=== PATIENT | female | born 1965 ===

== ENCOUNTER 2017-09-08 07:30 | Inpatient (IN) | payer OTHER ==
[2017-09-09] MEDS ORDERED: Vancomycin 1 gm/D5W 200 ml 1 GM/200 ML BAG IVPB ONE (10:26)
[2017-09-09] MEDS ORDERED: Lidocaine/Epinephrine 1% 1:100000 10 ML IJ ONE (10:26)
[2017-09-09] MEDS ORDERED: Thrombin Topical 20,000 Intl Units Spray Kit TOP ONE (10:27)
[2017-09-09] MEDS ORDERED: Bupivacaine HCl 0.5% PF (30 ml) Inj ONE (10:27)
[2017-09-09] MEDS ORDERED: Sodium Chloride 0.9% 20 ML IV ONE ×2 (10:28→13:27)
[2017-09-09] MEDS ORDERED: Absorbable Gelatin Sponge Size 100 ONE ×2 (10:56→14:58)
[2017-09-09] MEDS ORDERED: Midazolam 2 MG/2 ML VIAL ONE (11:41)
[2017-09-09] MEDS ORDERED: Propofol 10 mg/ml 1,000 MG/100 ML VIAL ONE (11:42)
[2017-09-09] MEDS ORDERED: Propofol 10 mg/ml Inj (20 ML) ONE ×2 (12:22→12:32)
[2017-09-09] MEDS ORDERED: Remifentanil 1 mg/3 ml Vial IV ONE ×2 (12:33→13:08)
[2017-09-09] MEDS ORDERED: Bupivacaine Liposomal Inj 20 ml INFIL ONE (13:16)
[2017-09-09] MEDS ORDERED: Phenylephrine 10 mg/ml Inj ONE (14:27)
[2017-09-09] MEDS ORDERED: Absorbable Gelatin Sponge Size 12-7 ONE (14:58)
[2017-09-09] MEDS ORDERED: HYDROmorphone 0.5 mg/0.5 ml ISec ONE (16:04)
[2017-09-09] MEDS: HYDROmorphone 0.5 mg/0.5 ml ISec IVP PRN ×2 (16:05→17:20)
[2017-09-09] MEDS: Potassium Ch 20mEq in D5-1/2NS 1,000 ML IV SCH (18:40)
[2017-09-10] MEDS: Potassium Ch 20mEq in D5-1/2NS 1,000 ML IV SCH (04:20)
--- NOTE | 2017-09-10 04:32 | CP.PCM.PN ---
Subjective - Date & Time of Evaluation Date of Evaluation: 09/10/17 Time of Evaluation: 04:29 - Subjective Subjective: paged at 4:10AM for chest pain This patient is s/p spinal fusionc she has a PMhx of HLD FamHx of HTN, breast cancer, and grandfather of MS/CAD in 80's patient had echo before surgery, which was reportedly normal as per patient; no hospital records at this time to review patient also states that she has had a cardiac cath 8 years ago which was reportedly normal as well per patient; no records to review patient states she has had chest pain, for 2 hours, that comes and goes when she moves, worse with deep inspiration and worse when i examine her and touch her rib bones she states she has been using her incentive spirometer as much as possible patient is not currently on anticoagulation for DVT prophylaxis VSS on exam: BP 120/80, HR 75, O2 99% on RA, laying comfortably in bed, non diaphoretic will order EKG patient does not perc out, WELLS score of 1.3% clinically seems more like costochondritis with reproducible pain, worse with inspiration, painful on palpation, no tachycardia, no SOB EKG NSR with no ST T wave changes, good R wave, at 80BPM will give one dose of 800mg Ibuprofen Objective - Vital Signs/Intake and Output Vital Signs (last 24 hours): Temp Pulse Resp BP Pulse Ox 98.1 F 81 20 124/77 98 09/09/17 23:15 09/09/17 23:15 09/09/17 23:15 09/09/17 23:15 09/09/17 23:15 Intake and Output: 09/09/17 09/10/17 18:59 06:59 Intake Total 1775 Output Total 400 100 Balance 1375 -100 - Medications Medications: Current Medications Acetaminophen (Tylenol 325mg Tab) 650 mg PO Q6 PRN PRN Reason: Fever >100.4 F Hydromorphone/Sodium Chloride (Dilaudid Radioisotope Technician) 6 mg IV Q4H PRN; Protocol PRN Reason: Pain, severe (8-10) Last Admin: 09/09/17 18:40 Dose: 6 mg Potassium Chloride/Dextrose/Sod Cl (Potassium Chl 20 Meq In D5-1/2ns) 1,000 mls @ 100 mls/hr IV .Q10H [facility] Last Admin: 09/09/17 18:40 Dose: 100 mls/hr Magnesium Hydroxide (Milk Of Magnesia) 30 ml PO ONCE ONE Stop: 09/10/17 10:01
--- NOTE | 2017-09-10 07:48 | OP ---
PROCEDURE DATE: 09/09/2017 PREOPERATIVE DIAGNOSES: Lumbar disk disruption, spondylolisthesis of L4-5. POSTOPERATIVE DIAGNOSES: Lumbar disk disruption, spondylolisthesis of L4-5. PROCEDURE: L4-5 decompression diskectomy, interbody and posterolateral fusion with iliac autograft and segmental pedicle screw fixation. SURGEON: Duglas Padron MD CO-SURGEON: Niranjan Gilliam MD TYPE OF ANESTHESIA: General endotracheal. ESTIMATED BLOOD LOSS: 300 mL, 125 mL returned via Cell [employer]. COMPLICATIONS: None. JUSTIFICATION: The patient is status post on-the-job accident who is suffering severe low back pain and left-sided radicular pain. She underwent some type of percutaneous diskectomy procedure, which I believe was a transforaminal percutaneous diskectomy which failed. She again suffered significant pain down in the left leg as well as intraarticular back pain. Postoperative MRI documented severe collapse of the disk space. There was now spondylolisthesis. There was evidence of soft tissue in the left lateral foramen. The patient was offered the possibility of operative intervention by reexploration, decompression, attempted interbody fusion, segmental fixation, and posterolateral fusion. The nature of this procedure, the rationale behind it, potential risks and complications were discussed with her at length. All of her questions were answered. She fully understood all the above and elected to proceed. DESCRIPTION OF PROCEDURE: The patient was taken to the operating room. She was hooked up to neurophysiological monitoring. She was carefully intubated, anesthetized. She was placed on the OR table on a Benji frame in a prone position. Care was taken to protect the face, eyes, endotracheal tube, and all bony prominences. The entire low back was then scrubbed with acetone and scrub painted and draped in the usual sterile manner. Incision localized with lateral fluoroscopy traced out overlying the spinous processes of L3 to L5. After prepping and draping, the incision was made with a #10 blade knife and carried down to the level of the fascia. Bovie cautery was used to incise the fascia, strip the paraspinal muscles off the spinous processes and laminae of L4 to L5. Confirmatory x-ray was taken. The exposure was then widened out laterally bilaterally again with Bovie and Benson elevators to expose the transverse processes at both levels on both sides. The entire L4-5 facet was exposed as well. Bleeding controlled throughout with the Bovie cautery and thrombinated Gelfoam. At this point, we performed bone marrow harvestation. A 5-gauge trocar was inserted directly into the right superior posterior iliac crest. Approximately 90 mL of marrow was aspirated. This was then spun down to obtain the bone marrow mesenchymal cells which were then used to impregnate some collagen, hydroxyapatite sponges along with some additional allograft. This was later used for the bone fusion. The decompression was begun with Leksell rongeur removing the inferior spine of L4, the top of L5, thinning down the L4 lamina. All this bone was saved and later used in bone grafting. Then various-sized Kerrison rongeurs were used to complete a wide laminotomy removing the inferior two-thirds of the L4 lamina. Generous medial facetectomies were performed laterally bilaterally. At this point, we used a high-speed drill as well as various-sized Kerrisons. On the right side which was , there was no problem and we widely exposed the lateral disk. Foraminotomies performed on the exiting four nerve roots on the right side and was also identified the canal traced below the pedicle to ensure complete decompression. On the left side where there was scarring distally anterior to the top of the L5 root as well as primarily in the foramen into the L4 root, we were able to dissect the outer scar somewhat. We performed a medial facetectomy as described above and a generous foraminotomy of the scarred exiting L4 nerve root. We began the diskectomy on the right side, gently retracting the root medially. The disk was incised and noted to be markedly collapsed. Just to see if there was any chance of placing an interbody graft, we put the smaller sized 8 mm dilator, i.e., without any plates into the disk space and under the live fluoroscopy. ____ looks like it was digging somewhat into the endplate with no sharp edge and thus we abandoned any thought of performing an interbody fusion. We completed the diskectomy on that side and then performed the same diskectomy on the left side, which was even more collapsed. Following the diskectomy, we decorticated the endplates a little bit with curettes and then placed bone grafting material directly into the disk space. This included marrow-impregnated mini sponges, some additional allograft, bone matrix protein, and chopped up products of decompression. This space has also been filled on the right side. At this point, we decorticated the lateral gutter. Using a high-speed drill, we decorticated both transverse processes of lateral pars and facet on both sides. We then began the pedicular instrumentation. We used technique of identifying the pedicular entrance both visually and fluoroscopically, drilled the cortical surface and passed the gear shift down the barrel of the pedicle into the vertebrae. We then used a ball-tip probe to sound the passage way and placed the appropriate-sized screw. Using this technique, we placed 45 mm length screws bilaterally at L4 and 45 and 40 mm respectively at L5, both AP and lateral fluoroscopy confirmed excellent position of all 4 of the screws. No screw elicited any EMG activity than less than 20 milliamps. We then placed the appropriate-sized titanium rods into the two screw head receptacles on each side. Placed locking nuts and torque-wrenched tight reconnections. We did attempt to place a cross connector, but because of the divergent nature of the ike, this was impossible. We then packed all remaining bone grafting material as described above into the lateral gutters to achieve the posterolateral fusion. At this point, we ensured there was no foreign matter, particularly bone grafting material in the peridural space. This was irrigated with antibiotic solution, a layer of thrombinated powdered Gelfoam, followed by a layer of solid Gelfoam was left in the posterior epidural space. The retractors were withdrawn. The muscle reapproximated using interrupted 0 Vicryl, the fascia closed using tight interrupted 0 Vicryl stitch. The subcu closed in 2 separate layers of 3-0 Vicryl and the skin closed with running 3-0 Monocryl stitch, benzoin, and Steri-Strips. The dressing was applied. The patient was turned back on to a supine position on stretcher, extubated without difficulty, noted to be moving all groups of the lower extremities with excellent strength. Somatosensory evoked potentials and EMG remained quiescent over the procedure. There were no complications. Counts were correct. Duglas Padron MD [facility] # [id number]
--- NOTE | 2017-09-10 07:51 | RAD ---
PROCEDURE: Intraoperative Fluoroscopy. HISTORY: LUMBAR FUSION L4/L5 FINDINGS: Fluoroscopic assistance was provided for L4-5 lumbar fusion. Please refer to the operative report from JAMES Rg.
[2017-09-10] MEDS ORDERED: Magnesium Hydroxide Susp 30 ml UD PO ONE (10:00)
--- NOTE | 2017-09-10 14:24 | CP.PCM.PN ---
Subjective - Date & Time of Evaluation Date of Evaluation: 09/10/17 Time of Evaluation: 14:19 - Subjective Subjective: SPINE - POD #1 Pt resting in bed. States she was OOB to chair earlier for an hour. Her L leg feels better than pre-op. The WINDOWS DEPLOYMENT TECHNICIAN helps her back pain. Voiding on own after roach removal. VSS. Afebrile. Moving lower extremities actively. Neuro grossly intact. Plan: Continue to mobilize as tolerated. Pt [facility] in [facility] but will be alone during day. Await rehab eval for possible acute rehab placement post- discharge. Objective - Vital Signs/Intake and Output Vital Signs (last 24 hours): Temp Pulse Resp BP Pulse Ox 98.4 F 72 20 119/71 98 09/10/17 07:20 09/10/17 07:20 09/10/17 07:20 09/10/17 07:20 09/10/17 07:20 Intake and Output: 09/10/17 09/10/17 06:59 18:59 Intake Total 900 Output Total 700 Balance 200 - Medications Medications: Current Medications Acetaminophen (Tylenol 325mg Tab) 650 mg PO Q6 PRN PRN Reason: Fever >100.4 F Hydromorphone/Sodium Chloride (Dilaudid Field Care Manager) 6 mg IV Q4H PRN; Protocol PRN Reason: Pain, severe (8-10) Last Admin: 09/09/17 18:40 Dose: 6 mg Potassium Chloride/Dextrose/Sod Cl (Potassium Chl 20 Meq In D5-1/2ns) 1,000 mls @ 100 mls/hr IV .Q10H [facility] Last Admin: 09/10/17 04:20 Dose: 100 mls/hr
[2017-09-11] MEDS: Aluminum Hydroxide/Magnesium Hydroxide Susp (30 mL) PO PRN ×2 (01:51→21:23)
[2017-09-11] MEDS: Potassium Ch 20mEq in D5-1/2NS 1,000 ML IV SCH ×2 (01:53→12:55)
[2017-09-11] MEDS: oxyCODONE 20 mg ER Tab (oxyCONTIN) PO SCH ×2 (10:03→21:19)
--- NOTE | 2017-09-11 10:32 | CP.PCM.PN ---
Subjective - Date & Time of Evaluation Date of Evaluation: 09/11/17 Time of Evaluation: 10:30 - Subjective Subjective: POD 2 doing well amb to BR L leg better expected inc. pain Dsg c and d P PT dc BRAKESHOE REPAIRER ss to arrange dc plan Objective - Vital Signs/Intake and Output Vital Signs (last 24 hours): Temp Pulse Resp BP Pulse Ox 99.0 F 90 20 111/69 98 09/11/17 07:35 09/11/17 07:35 09/11/17 07:35 09/11/17 07:35 09/11/17 07:35 Intake and Output: 09/11/17 09/11/17 06:59 18:59 Intake Total 1920 Output Total 1400 Balance 520 - Medications Medications: Current Medications Acetaminophen (Tylenol 325mg Tab) 650 mg PO Q6 PRN PRN Reason: Fever >100.4 F Al Hydrox/Mg Hydrox/Simethicone (Maalox 30 Ml) 30 ml PO Q8 PRN PRN Reason: Indigestion / Heartburn Last Admin: 09/11/17 01:51 Dose: 30 ml Famotidine (Pepcid) 20 mg PO BID [facility] Last Admin: 09/10/17 18:38 Dose: 20 mg Hydromorphone/Sodium Chloride (Dilaudid Contact And Service Clerks Supervisor) 6 mg IV Q4H PRN; Protocol PRN Reason: Pain, severe (8-10) Last Admin: 09/09/17 18:40 Dose: 6 mg Potassium Chloride/Dextrose/Sod Cl (Potassium Chl 20 Meq In D5-1/2ns) 1,000 mls @ 100 mls/hr IV .Q10H [facility] Last Admin: 09/11/17 01:53 Dose: 100 mls/hr Oxycodone HCl (Oxycontin Extended Release Tab) 20 mg PO Q12 [facility] Last Admin: 09/11/17 10:03 Dose: 20 mg Oxycodone/Acetaminophen (Percocet 5/325 Mg Tab) 1 tab PO Q4H PRN PRN Reason: Pain, Mild (1-3) Stop: 09/14/17 10:01
--- NOTE | 2017-09-11 22:09 | CARD ---
APPROVED REPORT EKG Measurement Heart [id number] <Conclusion> Normal sinus rhythm Normal ECG
[2017-09-12] MEDS: Potassium Ch 20mEq in D5-1/2NS 1,000 ML IV SCH (02:46)
[2017-09-12] MEDS: Oxycodone/Acetaminophen 5/325 mg Tab PO PRN ×2 (05:55→15:04)
[2017-09-12] MEDS: Aluminum Hydroxide/Magnesium Hydroxide Susp (30 mL) PO PRN ×2 (05:57→10:01)
[2017-09-12] MEDS: oxyCODONE 20 mg ER Tab (oxyCONTIN) PO SCH (09:55)
--- NOTE | 2017-09-12 12:35 | CP.PCM.PN ---
Subjective - Date & Time of Evaluation Date of Evaluation: 09/12/17 Time of Evaluation: 12:34 - Subjective Subjective: less pain good st ambulating d/c home Objective - Vital Signs/Intake and Output Vital Signs (last 24 hours): Temp Pulse Resp BP Pulse Ox 98.9 F 86 20 95/59 L 96 09/12/17 08:00 09/12/17 08:00 09/12/17 08:00 09/12/17 08:00 09/12/17 08:00 - Medications Medications: Current Medications Acetaminophen (Tylenol 325mg Tab) 650 mg PO Q6 PRN PRN Reason: Fever >100.4 F Last Admin: 09/11/17 13:43 Dose: 650 mg Al Hydrox/Mg Hydrox/Simethicone (Maalox 30 Ml) 30 ml PO Q8 PRN PRN Reason: Indigestion / Heartburn Last Admin: 09/12/17 10:01 Dose: 30 ml Famotidine (Pepcid) 20 mg PO BID [facility] Last Admin: 09/12/17 09:56 Dose: 20 mg Potassium Chloride/Dextrose/Sod Cl (Potassium Chl 20 Meq In D5-1/2ns) 1,000 mls @ 100 mls/hr IV .Q10H [facility] Last Admin: 09/12/17 02:46 Dose: 100 mls/hr Oxycodone HCl (Oxycontin Extended Release Tab) 20 mg PO Q12 [facility] Last Admin: 09/12/17 09:55 Dose: 20 mg Oxycodone/Acetaminophen (Percocet 5/325 Mg Tab) 1 tab PO Q4H PRN PRN Reason: Pain, Mild (1-3) Stop: 09/14/17 10:01 Last Admin: 09/12/17 05:55 Dose: 1 tab
[2017-09-12 17:33] VITALS: BP 105/62; PULSE 92; RESP 18; TEMP 97.3; O2SAT 98
== END 2017-09-12 15:00 | disposition home or self-care (01) | DRG 460 ==
LOC: C.9S 09-09 09:19 → C.6T 09-09 18:18
PROVIDERS: ADMIT Neurological Surgery; ATTEND Neurological Surgery
PROC: 0SB20ZZ Excision of Lumbar Vertebral Disc, Open Approach (ICD-10-PCS; 2017-09-09)
PROC: 07DR3ZZ Extraction of Iliac Bone Marrow, Percutaneous Approach (ICD-10-PCS; 2017-09-09)
PROC: 0SG0071 Fusion of Lumbar Vertebral Joint with Autologous Tissue Substitute, Posterior Approach, Posterior Column, Open Approach (ICD-10-PCS; principal; 2017-09-09 11:30)
DX: M51.26 Other intervertebral disc displacement, lumbar region (principal); M43.16 Spondylolisthesis, lumbar region; E78.5 Hyperlipidemia, unspecified; M94.0 Chondrocostal junction syndrome [Tietze]; Z87.828 Personal history of other (healed) physical injury and trauma